=== PATIENT | female | born 1945 | race Caucasian/White ===

== ENCOUNTER 2017-11-03 13:07 | Outpatient (CLI) | payer MEDICARE, OTHER ==
--- NOTE | 2017-11-03 15:08 | RAD ---
CHEST PA AND LATERAL: History: 72-year-old female with history of dyspnea. Comparison: [employer] film from a barium swallow, 11-07-10. FINDINGS: Right total shoulder reversal arthroplasty. Moderate sized hiatal hernia. 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 Mild bilateral pleural thickening. Mild right rib deformity, probably related to healed fracture. IMPRESSION: Moderate sized hiatal hernia. No acute intrathoracic disease. POS: [facility]
== END 2017-11-03 13:08 | disposition home or self-care (01) ==
LOC: RAD 13:07
PROVIDERS: ATTEND Internal Medicine Pulmonary Disease
DX: R06.00 Dyspnea, unspecified (principal); K44.9 Diaphragmatic hernia without obstruction or gangrene
CPT/HCPCS: 71046

== ENCOUNTER 2017-11-28 19:30 | Outpatient (CLI) | payer MEDICARE, OTHER | END 2017-11-28 19:31 | disposition home or self-care (01) | LOC: SLEEPLAB 19:30 | PROVIDERS: ATTEND Internal Medicine Pulmonary Disease | DX: G47.33 Obstructive sleep apnea (adult) (pediatric) (principal); F41.9 Anxiety disorder, unspecified; I10 Essential (primary) hypertension | CPT/HCPCS: 95811 ==